=== PATIENT | female | born 1945 ===

== ENCOUNTER 2022-11-12 18:58 | Inpatient (IN) ==
[2022-11-12 19:54] LABS: Basophils # 0.1 10*3/uL (0.0-0.2); Basophils % 0.9 % (0.0-0.8); Eosinophils # 0.3 10*3/uL (0.0-0.87); Eosinophils % 4.4 % (0.00-10.9); Immature Granulocytes % 0.3 %; Immature Granulocytes Absolute 0.02 #; Lymphocytes # 1.3 10*3/uL (1.4-4.0); Lymphocytes % 19.7 % (21.3-54.2); Mean Corpuscular HGB Conc 32.4 GM/DL (32-36); Mean Corpuscular Volume 93.4 FL (87-102); Mean Platelet Volume 9.6 FL (9.6-12.0); Monocytes # 0.6 10*3/uL (0.11-0.8); Monocytes % 10.1 % (1.7-12.7); Neutrophils % 64.6 % (38.7-73.9); Platelet Count 228 T/CUMM (130-400); Red Blood Count 3.96 MC/CUMM (3.8-5.5); White Blood Count 6.35 T/CUMM (4-12)
[2022-11-12 20:04] LABS: INR 0.9; PT Patient Result 10.4 SECS (10.1-12.1); Partial Thromboplastin Time 27.1 SECS (23.7-32.9)
[2022-11-12 20:06] LABS: Calcium 8.8 MG/DL (8.5-10.1); Osmolality,Calculated 295.7 MOS/KG (273-304); Potassium 4.8 MMOL/L (3.5-5.1); Thyroid Stimulating Hormone 1.26 uIU/ml (0.358-3.74)
[2022-11-12] MEDS ORDERED: MIDAZOLAM 2 MG/2 ML VIAL ONE (20:55)
[2022-11-12] MEDS ORDERED: fentaNYL 100 MCG/2 ML VIAL ONE (20:55)
[2022-11-12] MEDS ORDERED: HEPARIN/NACL 0.9% 2 UNITS/ML 1,000 UNIT/500 ML BAG IV ONE (20:56)
[2022-11-12 21:02] VITALS: BP 141/49
[2022-11-12] MEDS ORDERED: GLUCAGON 1 MG VIAL IM PRN (21:26)
[2022-11-12] MEDS ORDERED: ONDANSETRON 4 MG/2 ML VIAL IV PRN (21:26)
[2022-11-12] MEDS ORDERED: hydrALAZINE 20 MG/1 ML VIAL IV PRN (21:26)
[2022-11-12] MEDS ORDERED: SODIUM CHLORIDE 0.9% 1,000 ML IV SCH (21:30)
[2022-11-12] MEDS ORDERED: DEXTROSE 10% 250 ML BAG IV PRN (21:42)
[2022-11-12 22:11] LABS: Risk Ratio 3.93; VLDL Cholesterol 18.2 MG/DL
[2022-11-12 23:57] LABS: Bacteria,Urine Occasional /HPF (Few); RBC,Urine 2 /HPF (0-4)
[2022-11-13 00:03] LABS: Bilirubin,Urine Negative (Negative); Blood, Urine Trace mg/dL (Negative); Glucose,Urine (UA) Negative (Negative); Ketones,Urine Negative (Negative); Nitrite,Urine Negative (Negative); Protein,Urine >=300 mg/dL (Negative); Urine Appearance Slightly Cloudy (Clear); Urine Color Yellow (Yellow); Urine Specific Gravity 1.025 (1.001-1.035); Urine pH 5.5 (4.5-8.0)
[2022-11-13 00:04] LABS: Urine Urobilinogen 0.2 eU/dL (<2.0)
[2022-11-13 04:50] LABS: Basophils # 0.1 10*3/uL (0.0-0.2); Basophils % 1.2 % (0.0-0.8); Eosinophils # 0.3 10*3/uL (0.0-0.87); Eosinophils % 4.4 % (0.00-10.9); Hematocrit 37.9 VOL% (35.7-47.0); Hemoglobin 11.9 GM/DL (12.0-16.0); Immature Granulocytes % 0.4 %; Immature Granulocytes Absolute 0.02 #; Lymphocytes # 1.4 10*3/uL (1.4-4.0); Lymphocytes % 24.8 % (21.3-54.2); Mean Corpuscular HGB Conc 31.4 GM/DL (32-36); Mean Corpuscular Volume 94.5 FL (87-102); Mean Platelet Volume 9.6 FL (9.6-12.0); Monocytes # 0.8 10*3/uL (0.11-0.8); Monocytes % 13.2 % (1.7-12.7); Platelet Count 215 T/CUMM (130-400); Red Blood Count 4.01 MC/CUMM (3.8-5.5); Red Cell Distribution Width 14.1 % (9.3-17.3); White Blood Count 5.68 T/CUMM (4-12)
[2022-11-13 05:12] LABS: Albumin 2.5 G/DL (3.4-5.0); Bilirubin,Total 0.6 MG/DL (0.20-1.00); Calcium 8.7 MG/DL (8.5-10.1); Osmolality,Calculated 296.6 MOS/KG (273-304); Potassium 4.4 MMOL/L (3.5-5.1); Total Protein 6.1 G/DL (6.4-8.2)
[2022-11-13] MEDS: INSULIN LISPRO 100 UNIT/ML SUBCUT SCH ×5 (08:34→20:33)
[2022-11-13] MEDS: lisinopriL 20 MG TABLET PO SCH (09:10)
[2022-11-13] MEDS: PANTOPRAZOLE 40 MG TABLET PO SCH (09:11)
[2022-11-13] MEDS: ENOXAPARIN 40 MG/0.4 ML SYRINGE SUBCUT SCH (09:11)
[2022-11-13] MEDS: GABAPENTIN 300 MG CAPSULE PO SCH ×2 (10:38→20:33)
[2022-11-13] MEDS: ACETAMINOPHEN 325 MG TABLET PO PRN (10:39)
[2022-11-14 05:13] LABS: Basophils # 0.1 10*3/uL (0.0-0.2); Basophils % 1.2 % (0.0-0.8); Eosinophils # 0.3 10*3/uL (0.0-0.87); Eosinophils % 4.8 % (0.00-10.9); Hematocrit 38.8 VOL% (35.7-47.0); Hemoglobin 12.5 GM/DL (12.0-16.0); Immature Granulocytes % 0.2 %; Immature Granulocytes Absolute 0.01 #; Lymphocytes # 1.3 10*3/uL (1.4-4.0); Lymphocytes % 22.3 % (21.3-54.2); Mean Corpuscular HGB Conc 32.2 GM/DL (32-36); Mean Corpuscular Volume 95.1 FL (87-102); Mean Platelet Volume 9.8 FL (9.6-12.0); Monocytes # 0.7 10*3/uL (0.11-0.8); Neutrophils % 59.5 % (38.7-73.9); Platelet Count 225 T/CUMM (130-400); Red Blood Count 4.08 MC/CUMM (3.8-5.5); Red Cell Distribution Width 14.1 % (9.3-17.3); White Blood Count 6.01 T/CUMM (4-12)
[2022-11-14 05:29] LABS: Calcium 8.6 MG/DL (8.5-10.1); Osmolality,Calculated 296.8 MOS/KG (273-304); Potassium 4.7 MMOL/L (3.5-5.1)
[2022-11-14] MEDS: ENOXAPARIN 40 MG/0.4 ML SYRINGE SUBCUT SCH (08:31)
[2022-11-14] MEDS: INSULIN LISPRO 100 UNIT/ML SUBCUT SCH ×4 (08:31→20:10)
[2022-11-14] MEDS: GABAPENTIN 300 MG CAPSULE PO SCH ×2 (08:32→20:10)
[2022-11-14] MEDS: ASPIRIN EC 81 MG TABLET PO SCH (08:32)
[2022-11-14] MEDS: ACETAMINOPHEN 325 MG TABLET PO PRN (08:33)
[2022-11-14] MEDS: PANTOPRAZOLE 40 MG TABLET PO SCH (08:33)
[2022-11-14] MEDS: lisinopriL 20 MG TABLET PO SCH (08:33)
[2022-11-15 05:08] LABS: Calcium 8.6 MG/DL (8.5-10.1); Potassium 4.4 MMOL/L (3.5-5.1)
[2022-11-15] MEDS: INSULIN LISPRO 100 UNIT/ML SUBCUT SCH ×4 (07:38→20:33)
[2022-11-15 07:43] LABS: Basophils # 0.1 10*3/uL (0.0-0.2); Eosinophils # 0.3 10*3/uL (0.0-0.87); Eosinophils % 4.5 % (0.00-10.9); Hematocrit 38.9 VOL% (35.7-47.0); Hemoglobin 12.5 GM/DL (12.0-16.0); Immature Granulocytes % 0.3 %; Immature Granulocytes Absolute 0.02 #; Lymphocytes # 1.5 10*3/uL (1.4-4.0); Lymphocytes % 21.1 % (21.3-54.2); Mean Corpuscular HGB Conc 32.1 GM/DL (32-36); Mean Corpuscular Volume 93.7 FL (87-102); Mean Platelet Volume 10.3 FL (9.6-12.0); Monocytes # 0.8 10*3/uL (0.11-0.8); Monocytes % 11.7 % (1.7-12.7); Neutrophils % 61.4 % (38.7-73.9); Platelet Count 245 T/CUMM (130-400); Red Blood Count 4.15 MC/CUMM (3.8-5.5); Red Cell Distribution Width 14.3 % (9.3-17.3); White Blood Count 6.86 T/CUMM (4-12)
[2022-11-15] MEDS: lisinopriL 20 MG TABLET PO SCH (08:48)
[2022-11-15] MEDS: ASPIRIN EC 81 MG TABLET PO SCH (08:48)
[2022-11-15] MEDS ORDERED: ceFAZolin 1,000 MG VIAL IRRIG ONE (08:58)
[2022-11-15] MEDS ORDERED: INFLUENZA VIRUS VACCINE 0.5 ML SYRINGE IM ONE (09:00)
[2022-11-15] MEDS ORDERED: MIDAZOLAM 2 MG/2 ML VIAL ONE (10:57)
[2022-11-15] MEDS ORDERED: HYDROmorphone 1 MG/1 ML SYRINGE ONE (10:57)
[2022-11-15] MEDS ORDERED: LIDOCAINE 1%/EPI INJ 20 ML VIAL ONE (11:14)
[2022-11-15] MEDS ORDERED: HEPARIN/NACL 0.9% 2 UNITS/ML 1,000 UNIT/500 ML BAG IV ONE (11:14)
[2022-11-15] MEDS ORDERED: ceFAZolin 1,000 MG VIAL ONE (11:17)
[2022-11-15] MEDS ORDERED: TISSUE ADHESIVE 1 EACH APPLICATOR TOP ONE (11:24)
[2022-11-15] MEDS: ENOXAPARIN 40 MG/0.4 ML SYRINGE SUBCUT SCH (12:40)
[2022-11-15] MEDS: GABAPENTIN 300 MG CAPSULE PO SCH ×2 (12:50→20:33)
[2022-11-15] MEDS: PANTOPRAZOLE 40 MG TABLET PO SCH (12:50)
[2022-11-16 04:27] LABS: Basophils # 0.1 10*3/uL (0.0-0.2); Eosinophils # 0.3 10*3/uL (0.0-0.87); Hematocrit 37.1 VOL% (35.7-47.0); Immature Granulocytes % 0.4 %; Immature Granulocytes Absolute 0.03 #; Lymphocytes # 1.2 10*3/uL (1.4-4.0); Lymphocytes % 16.2 % (21.3-54.2); Mean Corpuscular HGB Conc 32.3 GM/DL (32-36); Mean Corpuscular Volume 91.8 FL (87-102); Mean Platelet Volume 9.3 FL (9.6-12.0); Monocytes # 0.8 10*3/uL (0.11-0.8); Monocytes % 11.3 % (1.7-12.7); Neutrophils % 67.1 % (38.7-73.9); Platelet Count 220 T/CUMM (130-400); Red Blood Count 4.04 MC/CUMM (3.8-5.5); Red Cell Distribution Width 13.9 % (9.3-17.3); White Blood Count 7.27 T/CUMM (4-12)
[2022-11-16 04:54] LABS: Calcium 8.7 MG/DL (8.5-10.1); Osmolality,Calculated 285.3 MOS/KG (273-304); Potassium 4.2 MMOL/L (3.5-5.1)
[2022-11-16] MEDS: INSULIN LISPRO 100 UNIT/ML SUBCUT SCH ×2 (07:53→12:03)
[2022-11-16] MEDS ORDERED: NEBIVOLOL 10 MG TABLET PO SCH (09:00)
[2022-11-16] MEDS: PANTOPRAZOLE 40 MG TABLET PO SCH (09:13)
[2022-11-16] MEDS: GABAPENTIN 300 MG CAPSULE PO SCH (09:13)
[2022-11-16] MEDS: lisinopriL 20 MG TABLET PO SCH (09:13)
[2022-11-16] MEDS: ASPIRIN EC 81 MG TABLET PO SCH (09:14)
[2022-11-16] MEDS ORDERED: ROSUVASTATIN 10 MG TABLET PO SCH (21:00)
== END 2022-11-16 17:30 | disposition home or self-care (01) | DRG 243 ==
LOC: EDUNIT# → EDBD → N.ED 18:58 → SUATTDRO 21:26 → N.EDINP 21:26 → N.CC 22:05
PROVIDERS: ADMIT Internal Medicine Cardiovascular Disease; ATTEND Family Medicine